=== PATIENT | female | born 1975 | race African-American/Black ===

== ENCOUNTER 2022-09-30 00:33 | Emergency (ER) | payer BC, OTHER ==
[~2022-09-30] VITALS: Ht 165.1 cm; Wt 64.0 kg
[2022-09-30 01:15] VITALS: BP 117/72
[2022-09-30] MEDS ORDERED: KETOROLAC 15MG/ML VIAL IV ONE (02:00)
[2022-09-30 02:13] LABS: BASOPHILS % 0.4 % (0.0-2.0); EOSINOPHILS % 0.6 % (0.0-5.0); HEMATOCRIT. 36.9 % (36.0-48.0); HEMOGLOBIN. 12.3 g/dL (12.0-16.0); LYMPHOCYTES % 32.9 % (20.0-50.0); MEAN CORPUSCULAR HEMOGLOBIN 29.7 pg (28.0-32.0); MEAN PLATELET VOLUME 7.5 fl (7.4-10.4); MONOCYTES % 6.1 % (2.0-8.0); PLATELET 286 x1000/uL (130-400); RED BLOOD CELL COUNT 4.15 mill/uL (4.2-5.4)
[2022-09-30 02:16] LABS: CHLORIDE 107 mEq/L (98-107)
[2022-09-30 02:20] LABS: HCG SCREEN NEGATIVE
[2022-09-30 04:21] LABS: CLARITY URINE CLEAR (CLEAR); COLOR URINE YELLOW (YELLOW); KETONES URINE TRACE (NEGATIVE); LEUKOCYTE ESTERASE URINE NEGATIVE (NEGATIVE); NITRITE URINE NEGATIVE (NEGATIVE); OCCULT BLOOD URINE NEGATIVE (NEGATIVE); PH URINE 5.5 (4.5-8.0); PROTEIN URINE NEGATIVE (NEGATIVE); SPECIFIC GRAVITY URINE 1.026 (1.005-1.030); UROBILINOGEN URINE 0.2 E.U./dL (0.2-1.0)
== END 2022-09-30 05:09 | disposition home or self-care (01) ==
LOC: ER 00:33
DX: R10.9 Unspecified abdominal pain (principal); D64.9 Anemia, unspecified
CPT/HCPCS: 36415; 74176; 80053; 81003; 84703; 85025; 99284